=== PATIENT | male | born 1955 | race Two or more races ===

== ENCOUNTER 2022-05-22 15:19 | Emergency (ER) | payer OTHER ==
[~2022-05-22] VITALS: Ht 170.2 cm; Wt 61.2 kg
== END 2022-05-22 18:00 | disposition home or self-care (01) ==
LOC: ER 15:19
DX: S51.851A Open bite of right forearm, initial encounter (principal); W54.0XXA Bitten by dog, initial encounter; Y93.9 Activity, unspecified; Y92.63 Factory as the place of occurrence of the external cause